=== PATIENT | female | born 1935 | race Two or more races ===

== ENCOUNTER 2023-02-03 09:58 | Outpatient (CLI) | payer MEDICARE, BC | END 2023-02-03 23:59 | LOC: WOU 09:58 | PROVIDERS: ATTEND Podiatrist Foot & Ankle Surgery | DX: S81.811A Laceration without foreign body, right lower leg, initial encounter (principal); W22.8XXA Striking against or struck by other objects, initial encounter; Y92.89 Other specified places as the place of occurrence of the external cause; L59.8 Other specified disorders of the skin and subcutaneous tissue related to radiation; L97.222 Non-pressure chronic ulcer of left calf with fat layer exposed; I87.2 Venous insufficiency (chronic) (peripheral); Z79.899 Other long term (current) drug therapy | CPT/HCPCS: 11043; 11042; A6209 ==